=== PATIENT | female | born 1935 | race Caucasian/White ===

== ENCOUNTER 2016-11-07 08:23 | Emergency (ER) | payer MEDICARE, OTHER ==
[2016-11-07 10:18] LABS: HEMOGLOBIN 13.3 gm/dl (12.3-15.3); RED BLOOD COUNT 4.28 M/UL (4.00-5.10); WHITE BLOOD COUNT 12.8 K/UL (4.5-11.0)
== END 2016-11-07 12:03 | disposition home or self-care (01) ==
LOC: ER1 08:23
PROVIDERS: Emergency Medicine
DX: K64.9 Unspecified hemorrhoids (principal); I51.9 Heart disease, unspecified; Z79.899 Other long term (current) drug therapy
CPT/HCPCS: 36415; 80048; 82272; 85025; 85610; 86900; 86901; 93005; 99283; J7030

== ENCOUNTER → 2017-02-25 | Outpatient (CLI) | payer MEDICARE, OTHER | LOC: KOH-I 11:24 | DX: M79.604 Pain in right leg (principal); M79.89 Other specified soft tissue disorders | CPT/HCPCS: 93971 ==

== ENCOUNTER 2021-01-11 16:46 | Emergency (ER) | payer MEDICARE, OTHER ==
[2021-01-11 17:40] LABS: HEMOGLOBIN 12.8 gm/dl (12.3-15.3); RED BLOOD COUNT 4.17 M/UL (4.00-5.10); WHITE BLOOD COUNT 26.3 K/UL (4.5-11.0)
[2021-01-11] MEDS ORDERED: KEFLEX750 MG PO (21:15)
== END 2021-01-11 21:21 | disposition home or self-care (01) ==
LOC: ER1 16:46
PROVIDERS: Family Medicine
DX: D72.829 Elevated white blood cell count, unspecified (principal); J44.9 Chronic obstructive pulmonary disease, unspecified; I10 Essential (primary) hypertension
CPT/HCPCS: 71045; 80053; 81001; 83615; 85025; 85610; 99283

== ENCOUNTER 2021-01-18 14:45 | Emergency (ER) | payer MEDICARE, OTHER ==
[~2021-01-18 14:45] MED LIST: KEFLEX750 MG PO
[2021-01-18 16:05] LABS: HEMOGLOBIN 12.6 gm/dl (12.3-15.3); RED BLOOD COUNT 4.23 M/UL (4.00-5.10); WHITE BLOOD COUNT 28.7 K/UL (4.5-11.0)
== END 2021-01-18 20:05 | disposition short-term general hospital (02) ==
LOC: ER1 14:45
PROVIDERS: Preventive Medicine Occupational Medicine
DX: I63.9 Cerebral infarction, unspecified (principal); R29.708 NIHSS score 8; Z20.822 Contact with and (suspected) exposure to COVID-19
CPT/HCPCS: 51702; 70450; 71045; 80053; 81001; 82550; 82553; 83690; 83874; 83880; 84484; 85025; 85652; 86140; 87086; 93005; 99285; U0002